=== PATIENT | male | born 1980 | race Caucasian/White ===

== ENCOUNTER 2017-09-14 18:51 | Emergency (ER) | payer OTHER ==
[~2017-09-14] VITALS: Ht 177.8 cm; Wt 72.6 kg
--- NOTE | 2017-09-14 19:20 | NUR ---
BIBSELF C/O LAC TO RIGHT HAND S/P PUTTING UP GLASS CUP AT WORK . VSS. NO ACTIVE BLEEDING NOTED. SAFETY AND COMFORT MEASURES PROVIDED. WILL MONITOR.
--- NOTE | 2017-09-14 19:49 | NUR ---
AT FOR WOUND PROCEDURE.
[2017-09-14] MEDS ORDERED: TDAP [DIPH/PERTUSSIS/TET] 0.5 ML VIAL IM ONE ×2 (20:00)
[2017-09-14 20:08] VITALS: BP 155/88
== END 2017-09-14 20:08 | disposition home or self-care (01) ==
LOC: ER 18:52
DX: S61.011A Laceration without foreign body of right thumb without damage to nail, initial encounter (principal); W25.XXXA Contact with sharp glass, initial encounter; Y93.89 Activity, other specified; Y92.89 Other specified places as the place of occurrence of the external cause; Y99.8 Other external cause status
CPT/HCPCS: 90715; A4606; A6402; Z7610

== ENCOUNTER 2018-02-20 20:52 | Inpatient (IN) | payer OTHER, MEDICAID ==
[~2018-02-20] VITALS: Ht 177.8 cm; Wt 84.8 kg
--- NOTE | 2018-02-20 20:55 | NUR ---
"TOOK 30 10MG PILLS OF FLEXERIL TOGETHER WITH ALCOHOL 3HOURS AGO". NAD NOTED, VSS, RESP EVEN AND UNLABORED, PT WAS PUT ON MONITOR. AT BS.
--- NOTE | 2018-02-20 21:21 | NUR ---
CALLED POISON CONTROL AND SPOKE TO AUDIENCE COORDINATOR HERMELINDO. RELAYED ALL INFO TO DR LEE
[2018-02-20 21:24] LABS: BASOPHILS # (AUTO) 0.1 /CMM (0.0-0.2); BASOPHILS % (AUTO) 1.6 % (0.0-2.0); HEMATOCRIT 45 % (39-51); HEMOGLOBIN 15.5 g/dL (13.5-17.5); LYMPHOCYTES # (AUTO) 3.4 /CMM (0.8-4.8); LYMPHOCYTES % (AUTO) 56.8 % (20.0-44.0); MEAN CORPUSCULAR HEMOGLOBIN 31 PG (26.0-33.0); MEAN CORPUSCULAR HGB CONC 34 g/dl (31.0-36.0); MEAN CORPUSCULAR VOLUME 91 fL (80-96); MONOCYTES # (AUTO) 0.5 /CMM (0.1-1.30); MONOCYTES % (AUTO) 8.7 % (2.0-12.0); NEUTROPHILS # (AUTO) 1.9 /CMM (1.8-8.9); NEUTROPHILS % (AUTO) 31.9 % (43.0-81.0); PLATELET COUNT (AUTO) 277 /CMM (150-450); RDW COEFFICIENT OF VARIATION 10.9 (11.5-15.0); RED BLOOD CELL COUNT(AUTO) 4.94 MIL/uL (4.5-6.0)
[2018-02-20] MEDS ORDERED: IV NS 0.9% 1,000 ML BAG IV ONE (21:30)
[2018-02-20 21:33] LABS: APPEARANCE,URINE Clear (CLEAR); BILIRUBIN,URINE Negative (NEGATIVE); BLOOD, URINE Negative Ery/uL (NEGATIVE); COLOR,URINE Yellow (YELLOW); KETONES,URINE 15 (NEGATIVE); LEUKOCYTE ESTERASE ,URINE Negative (NEGATIVE); NITRITE, URINE Negative (NEGATIVE); PROTEIN,URINE Negative (NEGATIVE); UGLUCOSE Negative (NEGATIVE); UROBILINOGEN,URINE 0.2 EU/dL (0.2)
[2018-02-20 21:36] LABS: INR 0.89 (0.85-1.15)
--- NOTE | 2018-02-20 21:44 | NUR ---
CALLED NURSING MIDDLEWARE ENGINEER AND REQUESTED AN ICU BED FOR THIS PT.
[2018-02-20 21:54] LABS: POTASSIUM 3.8 mmol/L (3.5-5.1)
[2018-02-20 21:55] LABS: BILIRUBIN,TOTAL 0.4 mg/dL (0.2-1.0); CALCIUM, SERUM 8.7 mg/dL (8.5-10.1)
[2018-02-20 21:56] LABS: BILIRUBIN,DIRECT 0.1 mg/dL (0.0-0.2); SALICYLATE 3.1 mg/dL (2.8-20.0); TOTAL PROTEIN, SERUM 7.3 g/dL (6.4-8.2)
--- NOTE | 2018-02-20 22:02 | NUR ---
PAGED LAURA CARPENTER
--- NOTE | 2018-02-20 22:08 | NUR ---
PT IS ASSIGNED TO ICU RM#: [id number], DX: OVERDOSE, AND ACCEPTING: LAURA CARPENTER NP.
[2018-02-20] MEDS ORDERED: IV D5/0.45 NACL 1,000 ML IV ONE (22:30)
[2018-02-20] MEDS ORDERED: ONDANSETRON HCL/PF 4 MG/2 ML VIAL IVP PRN (22:30)
[2018-02-20] MEDS ORDERED: ACETAMINOPHEN 325 MG TABLET PO PRN (22:30)
[2018-02-20] MEDS ORDERED: ENOXAPARIN SODIUM 40 MG/0.4 ML DISP.SYRIN SQ SCH (23:00)
[2018-02-20 23:05] LABS: IRON, SERUM 94 ug/dl (50-175); TOTAL IRON BINDING CAPACITY 336 ug/dl (250-450)
[2018-02-20 23:14] VITALS: BP 115/74
[2018-02-20] MEDS ORDERED: Thiamine 100 MG/ML VIAL ONE (23:40)
[2018-02-21] VITALS (19 sets, daily range): BP systolic 98–157; BP diastolic 57–124
[2018-02-21] MEDS: Thiamine 100 MG in IV D5W 50 ML IV SCH ×2 (00:01→21:30)
[2018-02-21] MEDS ORDERED: FINA5TAB4 PO (00:40)
[2018-02-21] MEDS ORDERED: PARO30TA4 PO (00:40)
--- NOTE | 2018-02-21 00:43 | NUR ---
RN NOTES 22:52 ADMITTED A 37 Y/O MALE FROM ER , VERY LETHARGIC DUE TO INTOXICATION. RESPIRATORY EVEN AND UNLABORED ON O2 2LPM VIA NC. SATURATION 99%. ST ON TELE MONITOR HR 106. NO KNOWN ALLERGIES. PT IS RESPONSIVE TO NAME, AND TOUCH BUT UNABLE TO COMMUNICATE WELL , VERY SLEEPY. SKIN IS INTACT IV SITE ON LH G 18 AND RAC G 18 INTACT AND PATENT. 00:15 AM - LAURA CARPENTER AERONAUTICAL ENGINEERING OFFICER , SEEN AND EXAMINED THE PATIENT AND INTERVIEW WELL, PT IS MORE AWAKE AND ALERT NOW AND ABLE TO COMMUNICATE BUT HR INCREASE TO 160'S WHILE TALKING TO AERONAUTICAL ENGINEERING OFFICER, PAULINE, SAMANTHA IS AWARE. POC DISCUSSED BY AERONAUTICAL ENGINEERING OFFICER TO PATIENT. PT IS ABLE TO VERBALIZED HOME MEDS. PT ASKED FOR WATER AND ALLOWED BY AERONAUTICAL ENGINEERING OFFICER WHICH HE TOLERATED WELL. PER AERONAUTICAL ENGINEERING OFFICER PT WILL BE KEPT IN ICU FOR TONIGHT FOR CLOSELY MONITOR AND SEIZURE PRECAUTION.
--- NOTE | 2018-02-21 02:15 | NUR ---
RN NOTES PT IS ON A DEEP SLEEP NOTED PT WITH LITTLE TWITCHING , AND TALKING SILENTLY WHILE EYES CLOSE. WOKE UP AND ASKED FOR WATER. REMINDED ABOUT NPO STATUS AT THIS TIME AND RISK FOR ASPIRATION,. PT IS MORE AWAKE THAN EARLIER. ALTERNATIVE SWAB GIVEN TO KEEP MOUTH MOISTEN. THEN PT GO BACK TO SLEEP.
--- NOTE | 2018-02-21 03:30 | NUR ---
RN NOTES PT IS AWAKE , ENCOURAGED TO URINATE IN THE URINAL AND INFORMED THAT F/C WILL BE PLACED IF HE REALY NEEDS IT DUE TO RETENTION. PER PATIENT HE WILL TRY AGAIN LATER TO URINATE. RESPECT DECISIONS.
[2018-02-21 04:37] LABS: BASOPHILS % (AUTO) 0.9 % (0.0-2.0); EOSINOPHILS % (AUTO) 0.7 % (0.0-6.0); HEMATOCRIT 41 % (39-51); HEMOGLOBIN 13.7 g/dL (13.5-17.5); LYMPHOCYTES # (AUTO) 1.7 /CMM (0.8-4.8); LYMPHOCYTES % (AUTO) 33.2 % (20.0-44.0); MEAN CORPUSCULAR HEMOGLOBIN 32 PG (26.0-33.0); MEAN CORPUSCULAR HGB CONC 34 g/dl (31.0-36.0); MEAN CORPUSCULAR VOLUME 95 fL (80-96); MONOCYTES # (AUTO) 0.5 /CMM (0.1-1.30); MONOCYTES % (AUTO) 10.1 % (2.0-12.0); NEUTROPHILS # (AUTO) 2.8 /CMM (1.8-8.9); NEUTROPHILS % (AUTO) 55.1 % (43.0-81.0); PLATELET COUNT (AUTO) 233 /CMM (150-450); RED BLOOD CELL COUNT(AUTO) 4.28 MIL/uL (4.5-6.0); WHITE BLOOD COUNT (AUTO) 5.1 K/uL (4.3-11.0)
[2018-02-21 04:49] LABS: ALBUMIN 3.5 g/dL (3.4-5.0); BILIRUBIN,TOTAL 0.6 mg/dL (0.2-1.0); CALCIUM, SERUM 8.6 mg/dL (8.5-10.1); CREATININE 0.9 mg/dL (0.6-1.3); PHOSPHORUS 3.2 mg/dL (2.5-4.9); POTASSIUM 3.7 mmol/L (3.5-5.1); TOTAL PROTEIN, SERUM 6.5 g/dL (6.4-8.2)
[2018-02-21 05:00] LABS: THYROID STIMULATING HORMONE 3.014 uIU/mL (0.358-3.74)
--- NOTE | 2018-02-21 06:57 | NUR ---
RN NOTES PT ASLEEP WELL ON BED. MORE ALERT, COOPERATIVE , AFEBRILE. COMMUNICATE WELL. ANXIETY NOTED WHEN PATIENT IS AWAKE, HR GOES UP TO 160'S DUE TO ANXIETY BUT GOES DOWN RIGHT AWAY. REMAINED ST HR100'S/ REMAINED NPO, 2 IV SITE INTACT AND PATENT WITH IVF ONGOING. FOR SOCIAL SERVICE CONSULT AND PSYCHE EVAL IN AM PER PAULINE LEGAL DIRECTOR. USED URINAL FOR BLADDER. CALL LIGHT KEPT WITHIN EASY REACH AND REMINDED TO USED IT
--- NOTE | 2018-02-21 07:30 | NUR ---
FRONT DESK ADMIN- INITIAL NOTE RECEIVED PT A/O X3, RESTING IN BED. ON 2L NC, RESPIRATIONS EVEN AND UNLABORED, NO SOB OR DISTRESS PRESENT. BEDSIDE MONITOR REVEALS SINUS TACHYCARDIA. TWO IVS PRESENT: 1) RAC 18G (RUNNING D5 1/2NS @ 75 ML/HR) AND 2) LEFT HAND 18G. PT DENIES ANY PAIN OR DISCOMFORT. REMAINS NPO AT THIS TIME. WILL CONTINUE TO MONITOR.
--- NOTE | 2018-02-21 07:37 | NUR ---
WOUND CARE CONSULT: PT PRESENTS WITH RT HEEL BLISTER, PRESENT ON ADMISSION. PT STATES THAT HE WALKED FOR QUITE A DISTANCE. RECOMMEND DPM CONSULT. RECOMMENDATIONS MADE FOR SKIN PROTECTION AND WOUND CARE. DISCUSSED WITH NURSING STAFF. PT INDEPENDENT WITH BED MOBILITY AND CONTINENT. WILL SEE PRN. LINK IN AGREEMENT WITH PLAN OF CARE. Addendum: 02/21/18 at 0740 by LORELEI ARCHER WNDNU Amended: Links added.
[2018-02-21] MEDS: MULTIVIT, IRON, MIN NO. 8, FA 1 TAB PO SCH (08:16)
[2018-02-21] MEDS: FINASTERIDE (5 MG) 5 MG TABLET PO SCH (08:16)
[2018-02-21] MEDS: PANTOPRAZOLE 40 MG VIAL IV SCH (09:09)
--- NOTE | 2018-02-21 10:00 | NUR ---
OPERATIONS AND MAINTENANCE SUPERVISOR- BEDSIDE NURSING SWALLOW EVAL DONE. PT ABLE TO DRINK & TOLERATE WATER. ASPIRATION PRECAUTIONS IN PLACE. HOB ELEVATED. STARTED ON CLEAR LIQUID DIET PER DR. ROMO ORDER. WILL CONTINUE TO MONITOR.
[2018-02-21] MEDS: PAROXETINE HCL 20 MG TABLET PO SCH (10:50)
--- NOTE | 2018-02-21 13:45 | NUR ---
STOKER ERECTOR AND SERVICER- REPORT GIVEN TO ASHKAN MOYER. PT TO TRANSFER TO TELE ROOM 107. 1410- PT TRANSFERRED TO ROOM 107. ALL BELONGINGS SENT WITH PT.
--- NOTE | 2018-02-21 14:10 | NUR ---
COFFEE WEIGHER NOTE: RECEIVED REPORT FROM LLOYD, BEAUTICIAN APPRENTICE AND PATIENT WAS TRANSPORTED VIA WHEELCHAIR AND LLUVIA, WAS PRESENT UPON TRANSFER TO THE UNIT. PATIENT WAS PLACED TO ROOM 107. PATIENT IS AWAKE, ALERT AND VERBALLY RESPONSIVE. COOPERATIVE. RESPIRATION IS EVEN AND UNLABORED W/ O2 SATURATION 98% IN ROOM AIR. (L) HAND AND (R) AC IV LINE WAS NOTED PATENT AND INTACT. ON DEVICE PROCESSING ENGINEER, SR HR 88. PATIENT WALKED TO THE ROOM AND LAID ON THE BED. DENIED ANY PAIN. BED ALARMED AND LOCKED AT ALL TIMES. CALL LIGHT WITHIN REACH. NEEDS ANTICIPATED.
--- NOTE | 2018-02-21 15:20 | NUR ---
PROFESSOR OF CHEMISTRY NOTE: PATIENT WAS SEEN BY DR. HINTON (PSYCHIATRIST) AND MD DISCUSSED WITH THE PATIENT AND LLUVIA, RE: HIS PLAN TO HAVE AN OUTPATIENT ARRANGEMENT FOR REHAB.
[2018-02-21] MEDS ORDERED: DESO15OI3 TP (15:48)
--- NOTE | 2018-02-21 16:11 | NUR ---
Social service consult requested by SAMANTHA Herman and Dr. Mtz for overdose and inpatient alcohol treatment program. Pt. is a 37 year old male who was admitted to [facility] for overdose on Flexeril pills. JENNIFER met with pt. and his Park tran. Pt. is alert and oriented x 4. Pt. gave consent to speak to him with Park present. Pt. states he has been drinking alcohol for the past 10 years. Pt. appears to be in denial with the severity of his alcoholism. Pt. was minimizing his daily drinking by stating he drinks 1/4 bottle of gin. Pt's Park stepped in the conversation and said, pt. drinks a couple of bottles of white wine and 1/ bottle of gin daily. Pt's toxicology also showed positive for cocaine. Pt. appeared to be surprised he was positive for cocaine. Pt. states he use cocaine on and off. Pt. has a psychiatric diagnosis of OCD and takes medication. Pt. is unemployed. Pt. has three year old son Joaquín. Pt's is adamant that pt. goes to an inpatient treatment program. Park's parents are wiling to pay for treatment as well out of pocket. However, pt. is more interested in outpatient treatment. Per , pt. will not be able to come home to live with her and their son if he attends outpatient treatment. JENNIFER to refer patient and assist with getting into an inpatient treatment program. Pt. denies feeling suicidal/homicidal at this time. Pt. stated he overdosed for attention seeking purposes. Pt. was seen by psychiatrist Dr. Mtz. JENNIFER contacted Maria Esther Medina at [facility] and left her a voicemail message requesting a call back and an email. x [phone]. JENNIFER will also contact [facility] tomorrow and other programs to assist in getting pt. into a inpatient treatment program.
--- NOTE | 2018-02-21 19:30 | NUR ---
RN OPENING NOTES: RECEIVED PATIENT AWAKE AND ALERT NOT IN APPARENT DISTRESS ON ROOM AIR. NO COMPLAINTS OF PAIN. SINUS TACH ON THE MONITOR. IV ACCESS ON RIGHT HAND AND LEFT AC INTACT. PATIENT AMBULATORY. SAFETY MEASURES STILL ENSURED. CONTINUOUSLY MONITORED.
--- NOTE | 2018-02-21 19:34 | NUR ---
SCHOOL CHILD CARE ATTENDANT NOTE: PATIENT REMAINED AWAKE, ALERT AND VERBALLY RESPONSIVE. ON SEIZURE PRECAUTION. ON STABLE CONDITION. ATE 100% FOR HIS DINNER MEAL. REPORT GIVEN TO PM SHIFT NURSE FOR CONTINUITY OF CARE.
[2018-02-21] MEDS: ENOXAPARIN SODIUM 40 MG/0.4 ML DISP.SYRIN SQ SCH (21:29)
[2018-02-22] VITALS: BP 132/76
[2018-02-22 04:00] VITALS: BP 132/79
[2018-02-22 06:23] LABS: BASOPHILS % (AUTO) 0.4 % (0.0-2.0); EOSINOPHILS % (AUTO) 0.8 % (0.0-6.0); HEMATOCRIT 42 % (39-51); HEMOGLOBIN 14.3 g/dL (13.5-17.5); LYMPHOCYTES # (AUTO) 1.5 /CMM (0.8-4.8); LYMPHOCYTES % (AUTO) 37.1 % (20.0-44.0); MEAN CORPUSCULAR HEMOGLOBIN 32 PG (26.0-33.0); MEAN CORPUSCULAR HGB CONC 34 g/dl (31.0-36.0); MEAN CORPUSCULAR VOLUME 94 fL (80-96); MONOCYTES # (AUTO) 0.4 /CMM (0.1-1.30); MONOCYTES % (AUTO) 11.2 % (2.0-12.0); NEUTROPHILS % (AUTO) 50.5 % (43.0-81.0); PLATELET COUNT (AUTO) 200 /CMM (150-450); RDW COEFFICIENT OF VARIATION 11.7 (11.5-15.0); RED BLOOD CELL COUNT(AUTO) 4.52 MIL/uL (4.5-6.0)
[2018-02-22 06:30] LABS: CREATININE 0.9 mg/dL (0.6-1.3); POTASSIUM 3.9 mmol/L (3.5-5.1)
--- NOTE | 2018-02-22 06:51 | NUR ---
RN CLOSING NOTES: NO ACUTE CHANGES OVERNIGHT. NO EPISODES OF SEIZURE. NO COMPLAINTS OF PAIN. NO NOTED DECLINE IN MENTAL STATUS. REMAINED SR ON THE MONITOR WITH EPISODES OF ST DURING EXERTION. SAFETY AND SEIZURE PRECAUTIONS ENSURED. CONTINUOUSLY MONITORED. TO ENDORSE TO AM SHIFT RN.
--- NOTE | 2018-02-22 07:15 | NUR ---
HARDWARE DESIGN ENGINEER OPENING NOTE RECEIVED PATIENT RESTING IN BED IN STABLE CONDITION, NO RESPIRATORY DISTRESS NOTED, ON ROOM AIR, NO COMPLAINT OF PAIN. ABLE TO MAKE NEEDS KNOWN. IV SITES ON LEFT HAND AND RIGHT AC INTACT SALINE LOCK. SINUS RHYTHM ON QC TECH. BED LOW AND LOCKED, WILL CONTINUE TO MONITOR.
[2018-02-22 08:00] VITALS: BP 130/90
[2018-02-22] MEDS: FINASTERIDE (5 MG) 5 MG TABLET PO SCH (09:00)
[2018-02-22] MEDS: MULTIVIT, IRON, MIN NO. 8, FA 1 TAB PO SCH (09:23)
[2018-02-22] MEDS: PANTOPRAZOLE 40 MG VIAL IV SCH (09:23)
[2018-02-22] MEDS: PAROXETINE HCL 20 MG TABLET PO SCH (09:25)
--- NOTE | 2018-02-22 10:16 | NUR ---
JENNIFER received a voicemail from Álvaro at [facility] x [phone]. SW returned his call and left him a voicemail message requesting a call back. JENNIFER also faxed clinicals to Álvaro at [facility]. JENNIFER called [facility] and spoke to their pediatric care coordinator in the detox program who stated they have no beds available but to have the pt. call them for a screening. JENNIFER called [facility] inpatient treatment program and spoke to Taylor who requested for SW to have pt. call her at . JENNIFER met with pt. and his Park and informed pt. to call [facility] and [facility]. JENNIFER also gave the pt. list of referrals to inpatient residential alcohol treatment programs. SW to follow up with pt. once she hears back from [facility].
[2018-02-22 12:00] VITALS: BP 137/86
--- NOTE | 2018-02-22 12:05 | NUR ---
JENNIFER contacted Tarun Eastman at [facility] at [facility] since JENNIFER did not hear back from Álvaro at [facility]. Tarun informed JENNIFER to fax clinicals to Director Angel Reid at . JENNIFER faxed clinicals to Angel at [facility].
--- NOTE | 2018-02-22 13:30 | NUR ---
JENNIFER contacted Tarun again at [facility] to follow up regarding referral that was faxed to Angel, the director. Tarun informed JENNIFER that he is with Angel at this time. Angel informed JENNIFER that pt. will be admitted tomorrow. then received a call from Dylan Melgar at [facility] [phone] who informed JENNIFER to have pt. at their Detox facility at noon [facility]. Location is [address] [place] [address]. [place] [id number]. Family will have to pay co-pay of $3000 upon arrival. JENNIFER called pt's Park and informed her that pt. was accepted at [facility] detox program. Park was very happy and appreciative. JENNIFER to meet with pt. and Park in an hour to give them address and time etc. JENNIFER updated outpatient case manager Sparkle and pt's RN regarding discharge plan. Addendum: 02/22/18 at 1451 by DOUG RODRIGUEZ JENNIFER met with pt. and his Park bedside and gave them the address to [address] [place] [address] along with notice of them having to pay $3000 co-pay. Pt's was very appreciative of JENNIFER finding placement for the pt. Pt. wants to be discharged by 8AM tomorrow so he can go home and see his son Joaquín prior to going into detox program at noon. JENNIFER also updated Dr. Gan regarding pt's discharge plan. Addendum: 02/22/18 at 1454 by DOUG RODRIGUEZ JENNIFER informed manager of operations Sparkle regarding pt,. wanting to leave the hospital at 8 AM tomorrow.
[2018-02-22] MEDS: THIAMINE HCL 100 MG TABLET PO SCH (14:13)
[2018-02-22] MEDS: LORAZEPAM INJ 2 MG/ML VIAL IV PRN ×2 (14:28→19:25)
[2018-02-22 16:00] VITALS: BP 117/78
--- NOTE | 2018-02-22 19:10 | NUR ---
CONTRACT TECHNICIAN CLOSING NOTE PATIENT RESTING IN BED IN STABLE CONDITION, ON ROOM AIR. NO COMPLAINT OF PAIN OR RESPIRATORY DISTRESS NOTED. IV SITES ON LEFT HAND AND RIGHT ANTECUBITAL INTACT SALINE LOCK. SINUS RHYTHM ON TAPEMAN, HEART RATE IN THE 90S. BED LOW AND LOCKED, WILL ENDORSE TO ONCOMING NURSE.
--- NOTE | 2018-02-22 19:34 | NUR ---
ADMINISTRATIVE PROFESSIONAL NOTES RECEIVED PT ON BED. A/OX4 ON ROOM AIR SATURATING WELL. NO RESPIRATORY DISTRESS NOTED. ON TELE MONITOR SR 98. IV ACCESS ON LHAND G18 AND RHAND G18 PATENT AND INTACT. NO SWELLING OR BLEEDING NOTED. HEAD OF BED ELEVATED. SIDE RAILS UP. CALL LIGHT WITHIN REACH. BED ALARM ON. WILL CONTINUE TO MONITOR PT CLOSELY.
[2018-02-22 20:00] VITALS: BP 123/70
[2018-02-22] MEDS: ENOXAPARIN SODIUM 40 MG/0.4 ML DISP.SYRIN SQ SCH (20:30)
[2018-02-23] VITALS: BP 141/99
--- NOTE | 2018-02-23 00:08 | NUR ---
FLOOR WORKER NOTES D/C ORDER ORDERED, PER PT HE GONNA LEAVE TOMORROW 8AM. PRIMARY RN IN AM ENDORSED TO PUT THE D/C ORDER/ WILL COORDINATE WITH THE AM NURSE IN AM.
[2018-02-23 04:00] VITALS: BP 110/65
--- NOTE | 2018-02-23 06:30 | NUR ---
VOICE INSTRUCTOR CLOSING NOTES NO ACUTE CHANGES NOTED DURING THE SHIFT. PROVIDED COMFORT AND SAFETY. WILL ENDORSE TO THE AM NURSE FOR CONTINUITY OF CARE.
[2018-02-23 06:45] LABS: CALCIUM, SERUM 9.2 mg/dL (8.5-10.1); CREATININE 0.9 mg/dL (0.6-1.3); POTASSIUM 3.8 mmol/L (3.5-5.1)
--- NOTE | 2018-02-23 07:10 | NUR ---
IRB COMPLIANCE COORDINATOR OPENING NOTE RECEIVED PATIENT RESTING IN BED THIS MORNING, NO COMPLAINT OF PAIN, NO RESPIRATORY DISTRESS, ON ROOM AIR. SINUS RHYTHM ON THE BOAT CLEANING SUPERVISOR, HEART RATE IN THE 80S. ANTICIPATING DISCHARGE TODAY. BED LOW AND LOCKED, CALL LIGHT WITHIN REACH, WILL CONTINUE TO MONITOR.
[2018-02-23 08:00] VITALS: BP 131/89
[2018-02-23 08:03] LABS: BASOPHILS % (AUTO) 0.5 % (0.0-2.0); EOSINOPHILS % (AUTO) 0.8 % (0.0-6.0); HEMATOCRIT 41 % (39-51); HEMOGLOBIN 13.8 g/dL (13.5-17.5); LYMPHOCYTES # (AUTO) 1.7 /CMM (0.8-4.8); LYMPHOCYTES % (AUTO) 40.5 % (20.0-44.0); MEAN CORPUSCULAR HEMOGLOBIN 32 PG (26.0-33.0); MEAN CORPUSCULAR HGB CONC 34 g/dl (31.0-36.0); MEAN CORPUSCULAR VOLUME 94 fL (80-96); MONOCYTES # (AUTO) 0.4 /CMM (0.1-1.30); MONOCYTES % (AUTO) 9.5 % (2.0-12.0); NEUTROPHILS # (AUTO) 2.1 /CMM (1.8-8.9); NEUTROPHILS % (AUTO) 48.7 % (43.0-81.0); PLATELET COUNT (AUTO) 223 /CMM (150-450); RDW COEFFICIENT OF VARIATION 11.9 (11.5-15.0); RED BLOOD CELL COUNT(AUTO) 4.39 MIL/uL (4.5-6.0); WHITE BLOOD COUNT (AUTO) 4.3 K/uL (4.3-11.0)
[2018-02-23] MEDS: PANTOPRAZOLE 40 MG VIAL IV SCH (08:22)
[2018-02-23] MEDS: THIAMINE HCL 100 MG TABLET PO SCH (08:23)
[2018-02-23] MEDS: PAROXETINE HCL 20 MG TABLET PO SCH (08:23)
[2018-02-23] MEDS: MULTIVIT, IRON, MIN NO. 8, FA 1 TAB PO SCH (08:23)
[2018-02-23] MEDS: LORAZEPAM INJ 2 MG/ML VIAL IV PRN (08:23)
[2018-02-23] MEDS ORDERED: FINASTERIDE 1 MG PO SCH (09:00)
--- NOTE | 2018-02-23 11:00 | NUR ---
BULLDOZER OPERATOR CLOSING NOTE PATIENT PREPARED FOR DISCHARGE, VITAL SIGNS STABLE, EXITCARE AND DISCHARGE INSTRUCTIONS PROVIDED, EXPLAINED, AND SIGNED, BELONGINGS LIST REVIEWED, BOTH IV SITES REMOVED, NO SIGNS OF INFECTION OR BLEEDING. TELE BOX REMOVED, PICTURE TAKEN OF RIGHT HEEL. WOUND CARE DONE FOR SAID SITE. AT BEDSIDE. PATIENT LEFT IN STABLE CONDITION WITH BELONGINGS TO [facility] ACCOMPANIED BY .
== END 2018-02-23 11:00 | DRG 917 ==
LOC: ER 20:53 → ICU 22:17 → TELE1 02-21 14:04
PROVIDERS: ADMIT Registered Nurse; ATTEND Registered Nurse
DX: T48.1X2A Poisoning by skeletal muscle relaxants [neuromuscular blocking agents], intentional self-harm, initial encounter (principal); G92 Toxic encephalopathy; R45.851 Suicidal ideations; F10.129 Alcohol abuse with intoxication, unspecified; Y92.89 Other specified places as the place of occurrence of the external cause; F42.9 Obsessive-compulsive disorder, unspecified; N40.0 Benign prostatic hyperplasia without lower urinary tract symptoms; F14.129 Cocaine abuse with intoxication, unspecified; S90.821A Blister (nonthermal), right foot, initial encounter; F32.9 Major depressive disorder, single episode, unspecified
CPT/HCPCS: 36415; 80048-TC; 80053-TC; 80061-TC; 80076-TC; 80305; 81000-TC; 83540-TC; 83735-TC; 84100-TC; 84443-TC; 84484-TC; 85025-TC; 85730-TC; 87081-TC; A4606; C9113; G0480; J1650; J2060; J3411; J7030; J7060; Z7610